=== PATIENT | male | born 1980 | race Caucasian/White ===

== ENCOUNTER 2024-02-18 14:34 | Emergency (ER) | payer OTHER, SELFPAY ==
--- NOTE | 2024-02-18 15:20 | PC.NURSE ---
Pts family member said they are leaving and going to [facility]
== END 2024-02-18 15:20 | disposition left against medical advice (07) ==
LOC: SERX 15:40
PROVIDERS: Emergency Provider Emergency Medicine
DX: Z53.21 Procedure and treatment not carried out due to patient leaving prior to being seen by health care provider (principal)

== ENCOUNTER → 2024-04-06 | Outpatient (CLI) | payer OTHER, SELFPAY ==
--- NOTE | 2024-04-06 11:00 | XR_ITS ---
Examination: CT abdomen and pelvis without contrast. Coronal 3-D reconstructions. Sagittal 2-D reconstructions. Date and time of exam:April 06, 2024 1143 hours INDICATIONS: Lower chest and pelvic pain beginning several days ago CTDI: vol (mGy): 10.7 DLP: (mGycm): 690 Technique: Axial images of the abdomen have been obtained, 3 mm slice thickness Intravenous contrast material has not been administered. Low dose protocols were performed. One or more of the following dose reduction techniques were used; automated exposure control, adjustment of the mA and/or KV according to patient size, use of iterative reconstruction technique. Findings: Diffuse fatty infiltration throughout the liver no focal liver lesions No gallstones Spleen not enlarged No pancreatic or adrenal mass No renal or ureteral calculi, no hydronephrosis Normal appendix Mild edema in the mesentery fat axial image 124 No bowel obstruction No diverticulitis Urinary bladder intact No prostatomegaly Tiny fat-containing right inguinal hernia IMPRESSION: Fatty liver Mild edema in the mesenteric fat, mild panniculitis pattern No abdominal or pelvic abscess Normal appendix No bowel obstruction diverticulitis or free air Tiny fat-containing right inguinal hernia Consider testicular sonography follow-up
== END | disposition home or self-care (01) ==
PROVIDERS: Referring Provider Nurse Practitioner Family; Visit Provider Nurse Practitioner Family
DX: K76.0 Fatty (change of) liver, not elsewhere classified (principal); R60.0 Localized edema; K40.90 Unilateral inguinal hernia, without obstruction or gangrene, not specified as recurrent
CPT/HCPCS: 74176